=== PATIENT | male | born 2005 | race Caucasian/White ===

== ENCOUNTER 2024-05-23 21:45 | Observation (INO) ==
[2024-05-23 22:17] LABS: Appearance Urine Clear (Clear); Bilirubin Urine Negative (Negative); Blood Urine Negative (Negative); Color Urine Yellow; Glucose Urine UA Negative (Negative); Ketones Urine Negative (Negative); Leukocyte Esterase Urine Negative (Negative); Nitrite Urine Negative (Negative); Protein Urine Negative (Negative); Specific Gravity Urine 1.005 (1.000-1.030); Urobilinogen Urine Negative (Negative); pH Urine 6.5 (4.5-7.5)
[2024-05-23 22:19] LABS: Basophils # (auto) 0.08 K/uL (0.00-0.20); Basophils % (auto) 0.4 %; Hematocrit (blood only) 45.9 % (42.0-52.0); Hemoglobin 15.8 g/dl (14.0-18.0); Immature Granulocytes # (auto) 0.14 K/uL (0.01-0.20); Immature Granulocytes % (auto) 0.7 %; Lymphocytes # (auto) 1.88 K/uL (1.20-3.40); Lymphocytes % (auto) 9.1 %; Mean Corpuscular Hgb Conc 34.4 g/dL (32.0-36.0); Mean Corpuscular Volume 81.4 fL (80.0-100.0); Mean Platelet Volume 10.4 fL (9.4-12.4); Monocytes # (auto) 1.22 K/uL (0.11-0.59); Monocytes % (auto) 5.9 %; Neutrophils # (auto) 17.23 K/uL (1.40-6.50); Neutrophils % (auto) 83.9 %; Platelet Count 279 K/uL (130-400); RDW Coefficient of Variation 12.4 % (11.5-14.5); RDW Standard Deviation 36.6 fL (36.4-46.3); Red Blood Count 5.64 M/uL (4.70-6.10); White Blood Count 20.55 K/ul (4.8-10.8)
[2024-05-23 22:35] LABS: Albumin Globulin Ratio 1.3 (0.9-2); Albumin Level 5.1 gm/dl (3.4-5.0); BUN Creatinine Ratio 9.1 (10-20); Bilirubin,Total 0.8 mg/dl (0.2-1.0); Calcium 10.6 mg/dl (8.6-10.3); Creatinine Clr Calc Pharmacy 143.3 ml/min; Potassium 4.2 mmol/L (3.5-5.1); Total Protein 9.1 gm/dl (6.0-8.3)
[2024-05-23] MEDS: ONDANSETRON INJ 2 MG/ML 2 ML VIAL IV STA (22:37)
[2024-05-23] MEDS: SODIUM CHLORIDE 0.9% 1,000 ML IV ONE (22:37)
--- NOTE | 2024-05-23 22:46 | Emergency Department Note ---
Impression & Plan Right lower quadrant abdominal pain, Acute appendicitis, Appendicolith, Leukocytosis ED Provider Note HISTORY OF PRESENT ILLNESS: Patient is a 18-year-old male presenting with right lower quadrant abdominal pain. Patient reports that yesterday he had generalized abdominal pain and did not feel well. He states that today the pain has become more localized to his right lower quadrant. He reports nausea and a few episodes of vomiting earlier today. Denies any history of abdominal surgeries. He reports objective fevers and chills throughout the day today. Last oral intake was a sip of water at 2130. He denies any dysuria or hematuria. He denies any chest pain or shortness of breath. ROS: as above PHYSICAL EXAM: Constitutional: Patient appears in no acute distress. HENT: Head: Normocephalic and atraumatic. Eyes: EOMI, PERRL Mouth/Throat: Mucous membranes moist. Neck: Trachea midline. Neck supple. Cardiovascular: RRR, No murmurs, rubs or gallops. Intact distal pulses. Pulmonary/Chest: No respiratory distress. Breath sounds clear and equal bilaterally. No wheezes or rales. Abdominal: Abdomen soft, no rebound or guarding. RLQ TTP Musculoskeletal: No edema, tenderness or deformity noted. Skin: Warm and dry. No rash, erythema, pallor or cyanosis Psychiatric: Appropriate mood and affect for situation. Neurological: Alert and keenly responsive. CN II-XII grossly intact, moving all extremities equally and fully. MDM: - Vitals signs showed hypertension - History obtained via patient. History as above. - Chronic conditions affecting care: None - Differential diagnoses include, but are not limited to: appendicitis; diverticulitis; inguinal hernia; testicular torsion; ureteral calculi - Order placed for continuous cardiac monitoring. At this time, monitor showed rate of 80 bpm with normal sinus rhythm, per my interpretation. - External medical records reviewed. - EKG interpreted by myself showed normal sinus rhythm. Rate 80 bpm. QT 358. No acute ischemic changes. Noted to have an incomplete right bundle branch block. - Laboratory workup interpreted by myself showed leukocytosis (WBC 20.55) with neutrophil predominance; slight hyponatremia (Na 135); normal lipase - UA negative for infection - Patient given 1L NS and 4 mg IV zofran in ER. Offered pain medications, but he declined at this time. - CT abdomen/pelvis with IV contrast showed dilated, fluid-filled, inflamed appendix measuring 2.3 cm in diameter with large intraluminal appendicolith, consistent with acute uncomplicated appendicitis. - IV zosyn ordered - On reassessment, patient complaining of pain. Given 50 mcg IV fentanyl and 1g IV tylenol for pain control - Discussed results with the patient - Discussed case with general surgeon on-call, Dr. Holman, at 23:43. Will admit to his service and plan for surgery sometime tomorrow. - Patient admitted to inpatient general surgery service for further evaluation and management. ASSESSMENT AND PLAN: Diagnosis: Right lower quadrant abdominal pain; acute appendicitis; appendicolith; leukocytosis Plan: admit Past Med/Surg History Problem List (Updated 05/23/24 @ 23:56 by Pao Lamb MD) Leukocytosis (Acute) Appendicolith (Acute) Acute appendicitis (Acute) Right lower quadrant abdominal pain (Acute) Social History Smoking Status: Never smoker Feels Safe at Home: Yes Allergies Allergies Allergy/AdvReac Type Severity Reaction Status Date / Time No Known Allergies Allergy Unverified 05/23/24 23:54 Home Meds Home Medications Medication Instructions Recorded Confirmed No Known Home Medications 05/23/24 05/23/24 Results & Data (ED) Vital Signs Vital Signs - 24 hr 05/23/24 21:53 05/23/24 22:30 05/23/24 22:31 Temperature 37.1 C Temperature Source Temporal Artery Scan Pulse Rate 102 H 93 H 80 Respiratory Rate 16 18 Respiratory Effort / Characteristics Non-Labored Spontaneous Respiratory Depth Normal Blood Pressure 165/86 H 129/85 Blood Pressure Mean 112 106 Pulse Oximetry 98 98 Oxygen Delivery Method Room Air Sepsis Recent Fever Within 48 Hours No Sepsis New/Unexplained Change in Mental Status N/A Sepsis Action Taken by Nursing No Action Required Laboratory Data 05/23/24 22:04 05/23/24 22:04 Lab Results 05/23/24 05/23/24 Range/Units 22:03 22:04 WBC 20.55 H (4.8-10.8) K/ul RBC 5.64 (4.70-6.10) M/uL Hgb 15.8 (14.0-18.0) g/dl Hct 45.9 (42.0-52.0) % MCV 81.4 (80.0-100.0) fL MCH 28.0 (25.0-34.0) pg MCHC 34.4 (32.0-36.0) g/dL RDW Std Deviation 36.6 (36.4-46.3) fL RDW Coeff of Sylvie 12.4 (11.5-14.5) % Plt Count 279 (130-400) K/uL MPV 10.4 (9.4-12.4) fL Immature Gran % (Auto) 0.7 % Neut % (Auto) 83.9 % Lymph % (Auto) 9.1 % [place] % (Auto) 5.9 % Eos % (Auto) 0.0 % Baso % (Auto) 0.4 % Neut # (Auto) 17.23 H (1.40-6.50) K/uL Lymph # (Auto) 1.88 (1.20-3.40) K/uL [place] # (Auto) 1.22 H (0.11-0.59) K/uL Eos # (Auto) 0.00 (0.00-0.50) K/uL Baso # (Auto) 0.08 (0.00-0.20) K/uL Immature Gran # (Auto) 0.14 (0.01-0.20) K/uL Sodium 135 L (136-145) mmol/L Potassium 4.2 (3.5-5.1) mmol/L Chloride 96 L (98-107) mmol/L Carbon Dioxide 31 (21-32) mmol/L Anion Gap 8 (3-11) BUN 8 (6-23) mg/dl Creatinine 0.88 (0.6-1.4) mg/dl Est Cr Clr Drug Dosing 143.3 ml/min eGFR 127.03 BUN/Creatinine Ratio 9.1 L (10-20) Glucose 115 H (70-99(Fasting)) mg/dl Calcium 10.6 H (8.6-10.3) mg/dl Total Bilirubin 0.8 (0.2-1.0) mg/dl AST 23 (13-39) U/L ALT 26 (7-52) U/L Alkaline Phosphatase 75 (34-104) U/L Total Protein 9.1 H (6.0-8.3) gm/dl Albumin 5.1 H (3.4-5.0) gm/dl Globulin 4.0 (2.5-4.0) gm/dl Albumin/Globulin Ratio 1.3 (0.9-2) Lipase 9 L (11-82) U/L Urine Color Yellow Urine Appearance Clear (Clear) Urine pH 6.5 (4.5-7.5) Ur Specific [place] 1.005 (1.000-1.030) Urine Protein Negative (Negative) Urine Glucose (UA) Negative (Negative) Urine Ketones Negative (Negative) Urine Blood Negative (Negative) Urine Nitrite Negative (Negative) Urine Bilirubin Negative (Negative) Urine Urobilinogen Negative (Negative) Ur Leukocyte Esterase Negative (Negative) Administered Medications Discontinued Medications Sodium Chloride (Nss) 1,000 mls @ 999 mls/hr IV .Q1H1M ONE Stop: 05/23/24 23:20 Last Infusion: 05/23/24 23:57 Dose: Infused Documented By: Admin: 05/23/24 22:37 Dose: 999 mls/hr Documented By: LACEY Ioversol (Optiray 320 100ml) 90 ml IV ONCE ONE Stop: 05/23/24 23:07 Last Admin: 05/23/24 23:07 Dose: 90 ml Documented By: CARON Ondansetron HCl (Ondansetron Inj 2 Mg/Ml 2 Ml Vial) 4 mg IV NOW STA Stop: 05/23/24 22:21 Last Admin: 05/23/24 22:37 Dose: 4 mg Documented By: LACEY Imaging Data Radiologist's Impression: Abdomen/Pelvis CT 05/23/24 22:19 CR Exam(s): CT ABDOMEN + PELVIS With Contrast IV Amt: 90ml EXAM: CT Abdomen and Pelvis With Intravenous Contrast CLINICAL HISTORY: Reason for exam: RLQ abd pain. TECHNIQUE: Axial computed tomography images of the abdomen and pelvis with intravenous contrast. CTDI is 24.15 mGy and DLP is 1335.37 mGy-cm. Automated exposure control was utilized for the study. A dose lowering technique was utilized adhering to the principles of ALARA. CONTRAST: Patient received 90ml of IV contrast COMPARISON: No relevant prior studies available. FINDINGS: Lung bases: Unremarkable. ABDOMEN: Liver: Unremarkable. No mass. Gallbladder and bile ducts: Unremarkable. No calcified stones. No ductal dilation. Pancreas: Unremarkable. No mass. No ductal dilation. Spleen: Unremarkable. No splenomegaly. Adrenals: Unremarkable. No mass. Kidneys and ureters: Unremarkable. No solid mass. No hydronephrosis. Stomach and bowel: Unremarkable. No obstruction. No mucosal thickening. PELVIS: Appendix: Dilated, fluid-filled, inflamed appendix measuring up to 2.3 cm in diameter with large intraluminal appendicolith at the base. Bladder: Unremarkable. No mass. Reproductive: Unremarkable as visualized. ABDOMEN and PELVIS: Intraperitoneal space: Unremarkable. No free air, significant free fluid, or abscess. Bones/joints: No acute fracture. No dislocation. Soft tissues: Unremarkable. Vasculature: Unremarkable. No abdominal aortic aneurysm. Lymph nodes: Unremarkable. No enlarged lymph nodes. IMPRESSION: Dilated, fluid-filled, inflamed appendix measuring up to 2.3 cm in diameter with large intraluminal appendicolith at the base. Appearance is consistent with uncomplicated acute appendicitis. No free air or abscess. Communications: Verify Receipt Electronically signed by: Michoacano Ramos M.D. 05/23/24 23:19 PM Discharge Plan Visit Data Chief Complaint: Flank Pain Stated Complaint: RT FLANK PAIN, GEN PAIN, VOMITING/NAUSEA ED Provider: Pao Lamb Discharge Problem: Right lower quadrant abdominal pain, Acute appendicitis, Appendicolith, Leukocytosis Forms Stand Alone Forms: [facility] Prescriptions Prescriptions: No Action No Known Home Medications Referrals Referrals: PCP,NO [Primary Care Provider] -
[2024-05-23] MEDS: OPTIRAY 320 100ml IV ONE (23:07)
--- NOTE | 2024-05-23 23:20 | CT Scan Report ---
Exam(s): CT ABDOMEN + PELVIS With Contrast IV Amt: 90ml EXAM: CT Abdomen and Pelvis With Intravenous Contrast CLINICAL HISTORY: Reason for exam: RLQ abd pain. TECHNIQUE: Axial computed tomography images of the abdomen and pelvis with intravenous contrast. CTDI is 24.15 mGy and DLP is 1335.37 mGy-cm. Automated exposure control was utilized for the study. A dose lowering technique was utilized adhering to the principles of ALARA. CONTRAST: Patient received 90ml of IV contrast COMPARISON: No relevant prior studies available. FINDINGS: Lung bases: Unremarkable. ABDOMEN: Liver: Unremarkable. No mass. Gallbladder and bile ducts: Unremarkable. No calcified stones. No ductal dilation. Pancreas: Unremarkable. No mass. No ductal dilation. Spleen: Unremarkable. No splenomegaly. Adrenals: Unremarkable. No mass. Kidneys and ureters: Unremarkable. No solid mass. No hydronephrosis. Stomach and bowel: Unremarkable. No obstruction. No mucosal thickening. PELVIS: Appendix: Dilated, fluid-filled, inflamed appendix measuring up to 2.3 cm in diameter with large intraluminal appendicolith at the base. Bladder: Unremarkable. No mass. Reproductive: Unremarkable as visualized. ABDOMEN and PELVIS: Intraperitoneal space: Unremarkable. No free air, significant free fluid, or abscess. Bones/joints: No acute fracture. No dislocation. Soft tissues: Unremarkable. Vasculature: Unremarkable. No abdominal aortic aneurysm. Lymph nodes: Unremarkable. No enlarged lymph nodes. IMPRESSION: Dilated, fluid-filled, inflamed appendix measuring up to 2.3 cm in diameter with large intraluminal appendicolith at the base. Appearance is consistent with uncomplicated acute appendicitis. No free air or abscess. Communications: Verify Receipt Electronically signed by: Michoacano Ramos M.D. 05/23/24 23:19 PM
--- NOTE | 2024-05-24 00:04 | Communication Note ---
Date of Service: May 24, 2024 18 y/o male presented w/ abd pain, ct personally reviewed and agree with assessment of acute, uncomplicated appendicitis, large appendicolith. Will admit to floor, plan for lap appendectomy in AM. NPO, IVF's, abx. Full consult to follow.
[2024-05-24] MEDS: fentaNYL citrate PF 100 MCG/2 ML VIAL IV STA (00:21)
[2024-05-24] MEDS: PIPERACILLIN/TAZOBACTAM 4.5 GM/100 ML BAG IV ONE (00:22)
[2024-05-24] MEDS: ACETAMINOPHEN 1,000 MG/100 ML VIAL IV STA (00:22)
[2024-05-24] MEDS ORDERED: ONDANSETRON INJ 2 MG/ML 2 ML VIAL IV PRN ×2 (01:21→09:54)
[2024-05-24] MEDS ORDERED: ACETAMINOPHEN 1,000 MG/100 ML VIAL IV PRN (01:21)
[2024-05-24] MEDS ORDERED: MoRPHine SULFATE 4 MG/ML 1 ML CARP\\VIAL IV PRN (01:21)
[2024-05-24] MEDS ORDERED: diphenhydrAMINE 50 MG/ML VIAL IV PRN (01:21)
[2024-05-24] MEDS: LACTATED RINGER'S 1,000 ML IV SCH (01:59)
[2024-05-24] MEDS: MoRPHine SULFATE 2 MG/ML CARP IV PRN (01:59)
[2024-05-24] MEDS: PIPERACILLIN/TAZOBACTAM 4.5 GM/100 ML BAG IV SCH (06:09)
--- NOTE | 2024-05-24 08:19 | History & Physical Report ---
Date of Service May 24, 2024 Assessment & Plan (1) Acute appendicitis: Plan: pt with c/o of n/v abd pain , CT scan reading acute appendicitis. WBC 20 , VSS mild elevation in temp at 99.1. Abd non distended, soft , TTP . Discussed CT reading with patient and father. Recommending laparoscopic appendectomy with industrial controls technician surgeon Dr. Holman, Patient agreeable, procedure explained. Continue NPO, Iv zosyn, Iv fluids, PRN analgesic/antiemetics. Timing of procedure pending OR availability. Admission and Anticipated Discharge Date Admission Date: May 24, 2024 History of Present Illness Chief Complaint: acute appendicitis Primary Care Provider: [facility] Patient is a 18 yo male with no significant PMH that presented to the [facility] ER with c/o n/v , abd pain that started last Monday and progressively got worse. He has had associated chills, no known fevers. Denies SOB , CP, dysuria and last Bm was yesterday. He does not take blood thinners, and denies past surgical hx. Currently he report pain in RLQ. Allergies Allergy/AdvReac Type Severity Reaction Status Date / Time No Known Allergies Allergy Unverified 05/24/24 09:47 Home Medications Medication Instructions Recorded Confirmed Type oxycodone 5 mg tablet 5 - 10 mg (1 - 2 x 5 mg) PO 05/24/24 Rx .[id number] PRN pain #15 tabs Past Med/Surg History Problem List (Updated 05/24/24 @ 09:47 by Tabby Webb RN) S/P laparoscopic appendectomy Leukocytosis (Acute) Appendicolith (Acute) Acute appendicitis (Acute) Right lower quadrant abdominal pain (Acute) Medical History (Updated 05/24/24 @ 09:47 by Tabby Webb RN) No known health problems Surgical History (Updated 05/24/24 @ 09:47 by Tabby Webb RN) No history of previous surgery Social History Smoking Status: Current some day smoker Tobacco Type: E-cigarettes / Vaping Hx Alcohol Use: No Hx Substance Use: No Preferred Language: Kittitian Communication Ability: Effective Environmental Technician Required: No Beliefs That Will Affect Care: None Current Living Situation: Other Current Living Situation Comment: lives in [facility] Feels Safe at Home: Yes Safety Concerns: Feels Safe At This Time Assistive Devices: Contacts and Glasses Review of Systems Constitutional: + chills; no fever Respiratory: no dyspnea Cardiovascular: no chest pain Gastrointestinal: + abdominal pain, + nausea and + vomitin g Genitourinary: no dysuria Musculoskeletal: no muscle weakness Integumentary: no rash Psychiatric: no confusion Physical Exam Constitutional: cooperative; no acute distress and + uncomfortable Respiratory: normal respiratory effort and able to speak in complete sentences; no respiratory distress Cardiovascular: Rate/Rhythm: regular rate Gastrointestinal (Abdomen): Inspection/Auscultation: abdomen not distended Percussion/Palpation: + abdomen tender, + guarding and abdomen soft Musculoskeletal: no cyanosis or clubbing, extremities motor strength 5/5 Skin: no rashes, warm and dry Psychiatric: A+Ox3, euthymic affect Results & Data Results & Data Vital Signs (Past 12 Hours) Vital Signs Temp Pulse Pulse Resp BP BP Pulse Ox 05/24/24 06:05 99.1 F 80 16 133/82 97 05/24/24 01:50 98.6 F 89 18 128/79 96 05/24/24 01:50 05/24/24 00:30 99 H 14 148/98 H 96 05/23/24 22:31 80 05/23/24 22:30 93 H 18 129/85 98 05/23/24 21:53 98.8 F 102 H 16 165/86 H 98 Pulse Ox O2 Del Method O2 Del Method 05/24/24 06:05 Room Air 05/24/24 01:50 Room Air 05/24/24 01:50 96 Room Air 05/24/24 00:30 05/23/24 22:31 05/23/24 22:30 05/23/24 21:53 Room Air Diagnostic Findings [facility], [place] [phone] CT Scan Report Patient: RENEE CABRAL Admit Date: 05/23/24 MR#: [id number] Address1: Acct ID:[id number] Address2: Date: 2005 [facility] Zip: Age: 18 Location: ED Sex: M Room/Bed: Att Phy: Diagnosis: RT FLANK PAIN, GEN PAIN, VOMITING/NAUSEA Areli Phy: PCP,NO Service Date: 05/23/24 [facility] Phy: Interpreting Phy: Michoacano Ramos MDAdmit Phy: Ordering Phy: Pao Lamb MD cc: ~ ADDENDUM ADDENDUM: 05/23/24 23:33 Verify Receipt Verified receipt with Alvarez in ER for Dr. Lamb on 05/23 23:32 (-04:00) Electronically signed by: Michoacano Ramos M.D. Electronically signed by: Michoacano Ramos M.D. 05/23/24 23:19 PM ADDENDUM END Exam(s): CT ABDOMEN + PELVIS With Contrast IV Amt: 90ml EXAM: CT Abdomen and Pelvis With Intravenous Contrast CLINICAL HISTORY: Reason for exam: RLQ abd pain. TECHNIQUE: Axial computed tomography images of the abdomen and pelvis with intravenous contrast. CTDI is 24.15 mGy and DLP is 1335.37 mGy-cm. Automated exposure control was utilized for the study. A dose lowering technique was utilized adhering to the principles of ALARA. CONTRAST: Patient received 90ml of IV contrast COMPARISON: No relevant prior studies available. FINDINGS: Lung bases: Unremarkable. ABDOMEN: Liver: Unremarkable. No mass. Gallbladder and bile ducts: Unremarkable. No calcified stones. No ductal dilation. Pancreas: Unremarkable. No mass. No ductal dilation. Spleen: Unremarkable. No splenomegaly. Adrenals: Unremarkable. No mass. Kidneys and ureters: Unremarkable. No solid mass. No hydronephrosis. Stomach and bowel: Unremarkable. No obstruction. No mucosal thickening. PELVIS: Appendix: Dilated, fluid-filled, inflamed appendix measuring up to 2.3 cm in diameter with large intraluminal appendicolith at the base. Bladder: Unremarkable. No mass. Reproductive: Unremarkable as visualized. ABDOMEN and PELVIS: Intraperitoneal space: Unremarkable. No free air, significant free fluid, or abscess. Bones/joints: No acute fracture. No dislocation. Soft tissues: Unremarkable. Vasculature: Unremarkable. No abdominal aortic aneurysm. Lymph nodes: Unremarkable. No enlarged lymph nodes. IMPRESSION: Dilated, fluid-filled, inflamed appendix measuring up to 2.3 cm in diameter with large intraluminal appendicolith at the base. Appearance is consistent with uncomplicated acute appendicitis. No free air or abscess. Communications: Verify Receipt Electronically signed by: Michoacano Ramos M.D. 05/23/24 23:19 PM Dictated: 05/23/242318 Transcribed: 05/23/242318 CBC w Diff Results Results CBC w Diff Results: RBC 5.64 M/uL (4.70-6.10) 05/23/24 WBC 20.55 K/ul (4.8-10.8) H 05/23/24 Hgb 15.8 g/dl (14.0-18.0) 05/23/24 Hct 45.9 % (42.0-52.0) 05/23/24 MCV 81.4 fL (80.0-100.0) 05/23/24 MCH 28.0 pg (25.0-34.0) 05/23/24 MCHC 34.4 g/dL (32.0-36.0) 05/23/24 RDW Standard Deviation 36.6 fL (36.4-46.3) 05/23/24 RDW Coefficient of Variation 12.4 % (11.5-14.5) 05/23/24 Plt Count 279 K/uL (130-400) 05/23/24 MPV 10.4 fL (9.4-12.4) 05/23/24 Neutrophils (%) (Auto) 83.9 % 05/23/24 Lymphocytes (%) (Auto) 9.1 % 05/23/24 Monocytes # (Auto) 1.22 K/uL (0.11-0.59) H 05/23/24 Eosinophils # (Auto) 0.00 K/uL (0.00-0.50) 05/23/24 Immature Granulocyte % (Auto) 0.7 % 05/23/24 Neutrophils # (Auto) 17.23 K/uL (1.40-6.50) H 05/23/24 Lymphocytes # (Auto) 1.88 K/uL (1.20-3.40) 05/23/24 Monocytes # (Auto) 1.22 K/uL (0.11-0.59) H 05/23/24 Eosinophils # (Auto) 0.00 K/uL (0.00-0.50) 05/23/24 Basophils # (Auto) 0.08 K/uL (0.00-0.20) 05/23/24 Immature Granulocyte # (Auto) 0.14 K/uL (0.01-0.20) 4 Code Status & VTE Plan VTE Prophylaxis Plan VTE Prophylaxis will be ordered: Yes Supervising Physician Co-Signing Physician Notes Patient seen and examined, labs and imaging reviewed, agree with above. 18-year-old male presented with several days of abdominal pain that migrated to the right lower quadrant. On exam he has a low-grade temperature elevation 37.6, otherwise vital signs stable. He is tender to palpation in the right lower quadrant with guarding and McBurney's point. WBC elevated. CT personally reviewed and interpreted and agree with the assessment of dilated appendix with a large appendicolith and signs of an uncomplicated acute appendicitis. Patient was admitted and placed on antibiotics overnight. Plan for laparoscopic appendectomy Risk of the procedure were discussed to include but not limited to bleeding, infection, conversion open, normal appendix, damage surrounding structures, leak, abscess, need for future more extensive surgery, and the risk of anesthesia Likely discharge later this afternoon Wound care instructions, activity restrictions, and return precautions given Follow-up in general surgery clinic in 2 weeks, call with questions or concerns PG Care Time/CCT Total # of Minutes Spent Total Time Spent with Patient: Total time spent is greater than 50% in coordination of care (as documented) at patient's floor/unit and/or counseling patient: Coding Level of Care Code 54170 INT INP/OBS CARE 140MIN Diagnoses Acute appendicitis K35.80
[2024-05-24] MEDS ORDERED: DEXAMETHASONE SOD INJ 4 MG/ML VIAL ONE (08:55)
[2024-05-24] MEDS ORDERED: ONDANSETRON INJ 2 MG/ML 2 ML VIAL ONE (08:55)
[2024-05-24] MEDS ORDERED: PROPOFOL IV EMULSION 10 MG/ML 20 ML VIAL IV ONE (08:55)
[2024-05-24] MEDS ORDERED: MIDAZOLAM HCL 1 MG/ML 2ML VIAL ONE (08:55)
[2024-05-24] MEDS ORDERED: LIDOCAINE 2% 2 ML VIAL/AMP(20MG/ML) INFIL ONE (08:55)
[2024-05-24] MEDS ORDERED: fentaNYL citrate PF 100 MCG/2 ML VIAL ONE ×2 (08:55→10:33)
[2024-05-24] MEDS ORDERED: HYDROmorphone INJ 1 MG/ML SYRINGE IV PRN (09:54)
[2024-05-24] MEDS ORDERED: ATROPINE SULFATE 0.1 MG/ML 10ML SYR IV PRN (09:54)
[2024-05-24] MEDS ORDERED: fentaNYL citrate PF 100 MCG/2 ML VIAL IV PRN (09:54)
[2024-05-24] MEDS ORDERED: ePHEDrine sulfate 50 MG/ML AMP IV PRN (09:54)
--- NOTE | 2024-05-24 09:54 | Anesthesiology Consultation ---
Date of Service May 24, 2024 Assessment & Plan ASA ASA1 Proposed Anesthesia Anesthesia Type: General Risk / Benefits Reviewed With: PT / POA / Parent / Guardian, Accepts Plan and Informed Consent Obtained History Surgery Operation Date: 05/24/24 08:50 Proposed Procedures p Laparoscopic Appendectomy - Skyler Holman DO, FACS Height/Weight Height: 5 ft 7 in Weight: 88.4 kg Allergies Allergy/AdvReac Type Severity Reaction Status Date / Time No Known Allergies Allergy Unverified 05/24/24 09:47 Medications Home Medications Medication Instructions Recorded Confirmed Last Taken oxycodone 5 mg tablet 5 - 10 mg (1 - 2 x 5 mg) PO 05/24/24 Unknown .[id number] PRN pain #15 tabs Active Medications Generic Name Dose Route Start Last Admin Trade Name Freq PRN Reason Stop Dose Admin Lactated Ringer's 1,000 mls @ 125 mls/hr 05/24/24 01:21 05/24/24 06:09 Lr IV 06/23/24 01:20 EST 0 mls/hr .Q8H ANITA Infusion Piperacillin Sod/Tazobactam Sod 4.5 gm in 100 mls @ 25 mls/hr 05/24/24 06:00 05/24/24 06:09 Zosyn IV 06/03/24 05:59 25 mls/hr Q8H ANITA Administration Protocol Morphine Sulfate 2 mg 05/24/24 01:21 05/24/24 06:08 Morphine Sulfate 2 Mg/Ml Carp IV 06/07/24 01:20 2 mg Q3H PRN Administration Pain (1,2,3,4,5) & Pre PT NPO Date Last Intake of Fluids: 05/23/24 Time Last Intake of Fluids: 21:30 Date Last Intake of Solids: 05/23/24 Time Last Intake of Solids: 21:30 Past Medical History Medical History (Updated 05/24/24 @ 09:47 by Tabby Webb RN) No known health problems Exercise / Class Metabolic Activity II 4-5 Yardwork/Stairs/Walk up hill Past Surgical History Surgical History (Updated 05/24/24 @ 09:47 by Tabby Webb RN) No history of previous surgery Past Anesthesia History No Hx of Anesthesia Complications and No Family Hx of Anesthesia Complications History of PONV No Hx of PONV and No Hx of Motion Sickness Social History Smoking Status: Current some day smoker Hx Alcohol Use: No alcohol intake frequency: holidays/special occasions only Hx Substance Use: No substance use type: does not use Review of Systems denies fever/cough/ colds/ chest pain/ SOB/ BELLA denies BELLA Physical Exam Vital Signs Last Vital Signs Temp 37.6 C H 05/24/24 09:48 Pulse 99 H 05/24/24 09:48 Resp 18 05/24/24 09:48 BP 135/79 05/24/24 09:48 Pulse Ox 97 05/24/24 09:48 O2 Del Method Room Air 05/24/24 09:48 ENMT Mouth: no TMJ abnormality and no dentition abnormality Thyromental Distance: > or= 3.5 Finger Breadths Mallampati Class: II Neck neck extension not limited Respiratory normal respiratory effort; no respiratory distress Auscultation: lungs clear to auscultation bilaterally Cardiovascular Rate/Rhythm: regular rate and regular rhythm Neurologic moves all extremities Psychiatric Orientation: alert and oriented x 3 Testing Laboratory Results 05/23/24 22:04 05/23/24 22:04 Urine Color Yellow 05/23/24 22:03 Urine Appearance Clear (Clear) 05/23/24 22:03 Urine pH 6.5 (4.5-7.5) 05/23/24 22:03 Ur Specific [place] 1.005 (1.000-1.030) 05/23/24 22:03 Urine Protein Negative (Negative) 05/23/24 22:03 Urine Glucose (UA) Negative (Negative) 05/23/24 22:03 Urine Ketones Negative (Negative) 05/23/24 22: Urine Nitrite Negative (Negative) 05/23/24 22:03 Ur Leukocyte Esterase Negative (Negative) 05/23/24 22:03
[2024-05-24] MEDS ORDERED: KETOROLAC 30 MG/ML VIAL ONE ×2 (10:33→11:37)
[2024-05-24] MEDS ORDERED: SUGAMMADEX SODIUM 200 MG/2 ML VIAL IV ONE (10:33)
--- NOTE | 2024-05-24 10:38 | Electrocardiogram Report ---
Test Reason : Blood Pressure : */* mmHG Vent. Rate : 80 BPM Atrial Rate : 80 BPM P-R Int : 136 ms QRS Dur : 98 ms QT Int : 358 ms P-R-T Axes : 49 89 4 degrees QTcB Int : 412 ms Normal sinus rhythm Incomplete right bundle branch block Cannot rule out Inferior infarct , age undetermined Abnormal ECG No previous ECGs available Confirmed by Arie Jo ([id number]) on 05/24/2024 10:37:56 AM Referred By: REFERRED SELF Confirmed By: Arie Jo
[2024-05-24] MEDS ORDERED: PHENYLEPHRINE 100MCG/ML 10ML SYR IV ONE (10:51)
[2024-05-24] MEDS: BUPIVACAINE 0.5 % 5 MG/1 ML MPF 30ML VIAL ONE (11:23)
--- NOTE | 2024-05-24 11:28 | Operative Report ---
PG Post Operative Report Pre & Post Diagnosis Operation Date: 05/24/24 08:50 Pre-Op Diagnosis: Acute appendicitis Post-Op Diagnosis: Acute appendicitis I identified the patient and participated in the time-out.: Yes Procedure Operation Date: 05/24/24 08:50 Actual Procedures p Laparoscopic Appendectomy(Not Applicable) - Skyler Holman DO, FACS Surgeon Skyler Holman DO, FACS Periodontal Assistant Violeta Bowie Estimated Blood Loss 5 Findings Consistent with Post-Op Diagnosis Acute, nonperforated appendicitis, large appendicolith. Specimens Appendix Anesthesia Type General Complications none Disposition Accompanied Patient To Recovery: No Disposition: Recovery Room Indications 18-year-old male presented with signs symptoms of acute appendicitis, confirmed by CT scan, plan for laparoscopic appendectomy. The risks of the procedure were discussed, all questions were answered, and the patient agreed to proceed with surgery as planned. Description of Procedure The patient was properly identified, consented, and taken to the operating room where he was placed in the supine position. General endotracheal anesthesia was induced. SCDs and a safety belt were placed. Preoperative antibiotics were administered. A Restrepo catheter was not placed. The patient's abdomen was prepped and draped in the standard sterile fashion. Surgical timeout was performed and all parties were in agreement that this was the correct patient and procedure to be performed and we continued as planned. An incision was made superior into the left of midline. The Veress needle was inserted and saline drop test confirmed entry into the abdomen. The abdomen was insufflated with carbon dioxide which the patient Toller without incident. The Veress needle was removed and the abdomen entered using the Optiview technique and a 5 mm trocar with a 5 mm 30 degree scope. The introducer was removed and the laparoscope was inserted. The abdomen was inspected and no damage from initial trocar placement was noted, no gross abnormalities were noted within the 4 quadrants the abdomen. A 12 mm port was then placed in the left lower quadrant with care not to damage the epigastric vessels, and a 5 mm port was placed in the suprapubic midline with care not to damage the bladder. The patient was placed in Trendelenburg position and rotated towards the left. The small bowel was swept away from the right lower quadrant. The cecum was grasped with an atraumatic grasper exposing the appendix. The appendix was moderate inflamed and there was no evidence of perforation. There was a large appendicolith in the very proximal appendix. The appendix was also partially retrocecal. There was minimal fluid in the pelvis. A window was created be tween the base of the appendix and the mesoappendix. A purple loaded endoscopic stapler was then used to divide the appendix at its base. The Sonicision was then used to divide the mesoappendix. Hemostasis was good. The appendix was placed in an Endo Catch bag and removed through the umbilical port site. The right lower quadrant and pelvis was irrigated and hemostasis was found to be good. The 12 mm port site fascia was closed with [id number] Vicryl suture utilizing the Stephon-Daniela device. 5 mm trochars were removed and the abdomen was allowed to collapse. The wound was irrigated, and the skin of all ports was closed with 4-0 Monocryl subcuticular sutures. Dermabond was placed over the wounds. The patient was extubated in the operating room and taken to the PACU where he recovered without apparent incident. All sponge, instrument and needle counts were correct at the conclusion of the procedure. The patient tolerated the procedure well. The nurse practitioner was present and scrubbed for the entire the case. She was critical in positioning the patient, prepping and draping, retraction and exposure, driving the laparoscope, removal of the appendix, closure the incisions, placement of the dressings. I attest to the content of the Intraoperative Record and any orders documented therein. Any exceptions are noted below.
[2024-05-24] MEDS ORDERED: ACETAMINOPHEN 325 MG TAB PO PRN (11:31)
[2024-05-24] MEDS ORDERED: oxyCODONE HCL IR 5 MG TAB (IMMEDIATE RELEASE) PO PRN (11:31)
[2024-05-24] MEDS ORDERED: SODIUM CHLORIDE 0.9% 1,000 ML IV SCH (11:45)
--- NOTE | 2024-05-24 13:00 | Anesthesiology Progress Note ---
Date of Service May 24, 2024 Anesthesia Post Procedure Vital Signs Vital Signs: Temp Pulse Pulse Pulse Resp BP BP 05/24/24 12:30 37.4 C 84 16 130/75 05/24/24 12:22 82 14 132/78 05/24/24 12:15 84 14 134/82 05/24/24 12:05 37.4 C 90 15 124/77 05/24/24 11:55 120 H 14 113/80 05/24/24 11:45 36 C L 118 H 14 120/81 05/24/24 09:48 37.6 C H 99 H 18 135/79 05/24/24 08:35 88 19 136/85 05/24/24 06:05 37.3 C 80 16 133/82 05/24/24 01:50 37.0 C 89 18 128/79 05/24/24 01:50 05/24/24 00:30 99 H 14 148/98 H 05/23/24 22:31 80 05/23/24 22:30 93 H 18 129/85 05/23/24 21:53 37.1 C 102 H 16 165/86 H Pulse Ox Pulse Ox O2 Del Method O2 Del Method O2 Flow Rate 05/24/24 12:30 95 Room Air 05/24/24 12:22 93 Room Air 05/24/24 12:15 92 Room Air 05/24/24 12:05 97 Room Air 05/24/24 11:55 100 Oxymask 9 05/24/24 11:45 100 Oxymask 9 05/24/24 09:48 97 Room Air 05/24/24 08:35 97 Room Air 05/24/24 06:05 97 Room Air 05/24/24 01:50 96 Room Air 05/24/24 01:50 96 Room Air 05/24/24 00:30 96 05/23/24 22:31 05/23/24 22:30 98 05/23/24 21:53 98 Room Air Pain Intensity Abdomen: Pain Intensity: 3 Transfer of Care Handoff Completed per policy Notes Mental Status: alert / awake / arousable and participated in evaluation Patient Amnestic to Procedure: Yes Nausea / Vomiting: adequately controlled Pain: adequately controlled Airway Patency, RR, SpO2: stable & adequate BP & HR: stable & adequate Hydration State: stable & adequate Anesthetic Complications: no major complications apparent and Pt Satisfied with anesthetic care
[2024-05-24] MEDS: oxyCODONE HCL IR 5 MG TAB (IMMEDIATE RELEASE) PO PRN (13:23)
== END 2024-05-24 14:25 | disposition home or self-care (01) ==
LOC: EDINP 21:45 → ED 21:45 → EDINP 05-24 10:01